=== PATIENT | male | born 1990 | race Caucasian/White ===

== ENCOUNTER 2019-10-25 09:30 | Outpatient (CLI) | payer BC, OTHER ==
--- NOTE | 2019-10-25 10:18 | RAD ---
Exam: 2 views abdomen HISTORY: Preoperative exam. Renal calculi. FINDINGS: No osseous abnormalities Nonspecific bowel gas pattern No suspicious densities projecting over the left or right renal silhouette or along the course of eit her ureter IMPRESSION: No radiographic evidence of nephrolithiasis or ureterolithiasis.
[2019-10-25 10:22] LABS: Anion Gap 11 mmol/L (10-20); BUN (Urea Nitrogen) 10 mg/dL (8.9-20.6); Calc. Creatinine Clearance 0 mL/min (70-130); Calcium 9.1 mg/dL (7.8-10.44); Carbon Dioxide 26 mmol/L (22-29); Chloride 102 mmol/L (98-107); Estimated GFR-MDRD Greater than 90; Glucose 92 mg/dL (70-105); Potassium 4.3 mmol/L (3.5-5.1); Sodium 135 mmol/L (136-145)
[2019-10-25 10:35] LABS: INR-International Normal Ratio 0.9; PTT 26.2 SEC (22.9-36.1); Prothrombin Time 12.2 SEC (12.0-14.7)
[2019-10-25 10:41] LABS: Hemoglobin 16.5 g/dL (14.0-18.0); Mean Corpuscular HGB CONC 32.3 g/dL (32.0-36.0); Mean Corpuscular Hemoglobin 31.2 pg (27.0-31.0); Mean Corpuscular Volume 96.7 fL (78.0-98.0); Mean Platelet Volume 7.9 fL (7.4-10.4); Platelet Count 241 thou/uL (130-400); RBC Distribution Width 12.1 % (11.5-14.5); Red Blood Cell (RBC) Count 5.27 mill/uL (4.70-6.10); White Blood Cell (WBC) Count 5.2 thou/uL (4.8-10.8)
== END 2019-10-25 09:31 | disposition home or self-care (01) ==
LOC: LABBT 09:30
PROVIDERS: ATTEND Urology
DX: Z01.818 Encounter for other preprocedural examination (principal); Z11.59 Encounter for screening for other viral diseases
CPT/HCPCS: 74018; 80048; 85027; 85610; 85730; 87635; U0003

== ENCOUNTER 2019-10-31 05:49 | Day surgery (SDC) | payer BC ==
[2019-10-25 09:53] VITALS: BMI 23.7
[2019-10-31] MEDS ORDERED: Levofloxacin 500 mg/D5W 100 ml Premix Bag ONE (06:40)
[2019-10-31] MEDS ORDERED: Iothalamate Meglumine 60% 30 ML VIAL FS ONE ×3 (07:05→08:00)
[2019-10-31] MEDS ORDERED: Fentanyl 100 MCG/2 ML VIAL ONE (07:08)
[2019-10-31] MEDS ORDERED: Midazolam HCl 2 mg/2 ml Vial ONE (07:20)
[2019-10-31] MEDS ORDERED: Glycopyrrolate 0.2 MG/ML 5 ML SYRINGE ONE (08:18)
[2019-10-31] MEDS ORDERED: Rocuronium Bromide 10 MG/ML (10ML VIAL) ONE (08:18)
[2019-10-31] MEDS ORDERED: PROPOFOL 200 MG/20 ML VIAL ONE (08:18)
[2019-10-31] MEDS ORDERED: Lidocaine 1% PF 5 ML VIAL ONE (08:18)
[2019-10-31] MEDS ORDERED: Ketorolac Tromethamine 30 MG/ML VIAL ONE (08:18)
[2019-10-31] MEDS ORDERED: Dexamethasone 20 MG/5 ML VIAL ONE (08:18)
[2019-10-31] MEDS ORDERED: Ondansetron PF 4 MG/2 ML Vial ONE (08:18)
--- NOTE | 2019-10-31 08:50 | RAD ---
KUB: COMPARISON: 10/25/2019. HISTORY: Left kidney stone. FINDINGS: A single view of the abdomen shows a nonspecific, nonobstructed bowel gas pattern. No obvious calcif ication is seen projecting over either renal shadow or along the course of the ureters. IMPRESSION: No urinary collecting system calculi identified. POS: EAA
--- NOTE | 2019-10-31 09:39 | RAD ---
XR IVP RETROGRADE: HISTORY: Left stent placement with stone. COMPARISON: Radiograph of same date. FINDINGS: Retrograde contrast through the left ureter demonstrates mild dilatation of the left renal collecting system. Satisfactory location of the double-J ureteral stent. IMPRESSION: 1. Satisfactory location of double-J ureteral stent. 2. Possible small filling defect of the ureteropelvic junction. POS: HOME
[2019-10-31] MEDS ORDERED: Oxybutynin 5 MG TAB ONE (09:45)
[2019-10-31] MEDS ORDERED: Phenazopyridine HCl 97.5 MG TABLET ONE (09:45)
--- NOTE | 2019-10-31 10:24 | OP ---
DATE OF PROCEDURE: 10/31/2019 PREOPERATIVE DIAGNOSIS: A 29-year-old male with left flank pain, left 5 mm UPJ stone with delayed nephrogram. POSTOPERATIVE DIAGNOSIS: A 29-year-old male with left flank pain, left 5 mm UPJ stone with delayed nephrogram. PROCEDURES PERFORMED: 1. Cystoscopy. 2. Left retrograde pyelogram. 3. A 6 x 28 double-J ureteral stent placement with distal tail in situ. 4. Balloon dilatation of the distal left intramural ureter. 5. Flexible ureteroscopy. 6. Pyeloscopy. 7. Laser lithotripsy. 8. Basket extraction of stone debris. ANESTHESIA: General. COMPLICATIONS: None apparent. DISPOSITION: To recovery room in stable condition. SPECIMEN: Stone fragment for chemical analysis. INTRAOPERATIVE FINDINGS: 1. Suggestion of possible early bulbar stricture, not warrant treatment. Scope easily maneuvered. 2. Left UPJ stone impacted, with mucosal adherence. INDICATION FOR PROCEDURE AND HISTORY: Mr. Feng is a 29-year-old male , who presented to the emergency room due to left flank pain. He has been provided pain medication and continues to have discomfort. He was observed for medical expulsion therapy, however, failed to pass with nonprogression. Of note, his stone is not visible on KUB. Due to persistent discomfort, he presents today for ureteroscopy, laser lithotripsy. Risks, complications, and indications for the procedure were discussed with him in detail. Risks and complications including , but not limited to, bleeding, pain, infection, injury to adjacent organs, urosepsis, ureteral, renal, kidney injury, stricture formation, possible secondary procedure were discussed with him in detail. Due to COVID-19 pandemic, patient's case has been reviewed and approved by administration to proceed, to prevent recurrent ER presentation for persistent stone. DESCRIPTION OF PROCEDURE: After an informed consent was signed, the patient was taken to the operating room, placed in a dorsal lithotomy position with the genital area prepped and draped in the usual surgical sterile fashion. A 21-Cambodian cystoscope was utilized for cystoscopy. Upon entering the level of the proximal penile-bulbar urethra, there was suggestion of early formation of stricture, however, this is nonobstructing, does not warrant treatment, and again, this only suggest an early component. Bilobar coapting lateral lobes of the prostate noted. Bladder was entered, which demonstrated no evidence of stone nidus of concern. The UOs were normal orthotopic position. At this time, a 5-Cambodian open-ended catheter was utilized for retrograde pyelogram, which demonstrated a filling defect in the UPJ consistent with the UPJ stone seen on CT. A preoperative KUB failed to demonstrate a stone nidus. It was difficult to perform a retrograde pyelogram opacifying the collecting system due to high-grade obstruction. We can see a tiny streak of contrast making its way into the collecting system with hydronephrosis. We used a 0.35 Sensor wire; however, I was unable to pass the wire proximal to the stone. We utilized multiple wires including straight, angled Glidewire. We also utilized 1:1 diluted lidocaine viscous lubricating the UPJ region. Subsequently , I was able to finally pass a 0.35 Glidewire into the left upper pole. An open- ended catheter was gently pushed into the upper pole, pushing the stone into the upper pole. At this time, we performed a repeat retrograde pyelogram, which demonstrated no evidence of extravasation of contrast at the UPJ nor the collecting system. A new wire was then switched to a 0.35 Sensor wire. Open-ended catheter was subsequently removed. Using [employer] 12-Cambodian 4-cm balloon dilator, we gently dilated the intramural ureter and held pressure at 20 atmospheres for about 1 to 2 minutes. Subsequently, a 10-Cambodian dual-lumen access sheath was able to be passed to the proximal ureter. Repeat retrograde pyelogram again was performed with no extravasation of contrast. At this time, a safety wire of 0.35 Super Stiff was placed into the left upper pole. An 11/13-Cambodian x 28 cm navigator was able to be passed just into the mid ureter as I did not forcibly engage the navigator proximal to this. A flexible ureteroscope was then advanced over the Super Stiff wire to the left upper pole. The stone was visualized into the upper pole, using 273-micron ball-tip laser fiber at 1.0 joules, we fragmented the stone into multiple stone nidus. The stone appeared to be dense, although in the upper pole, it appeared to be in anterior calyx, therefore laser lithotripsy and basket was somewhat cumbersome. There was a larger stone nidus. We moved this into the mid pole for more effective laser lithotripsy of the larger stone burden. We did obtain a fragment for chemical analysis. Surveying of the collecting system demonstrated what remained were tiny dust-like stone debris, which he should pass uneventfully. We again surveyed the ureter, there was no evidence of ureteral stone nidus. Assessing the UPJ, there was bullous edema and irritation of the mucosa consistent with an impacted adherent UPJ stone. No evidence of ureteral injury noted. The navigator was removed, but the ureteroscope with the wire in place. A 6 x 28 double-J ureteral stent was passed over the safety wire without difficulty. Wire was then subsequently removed with adequate curl in the upper pole and adequate redundancy in the bladder. Distal tail was left in situ. Bladder was completely emptied and he tolerated the procedure well and transported to the recovery room in stable condition. He was discharged with ciprofloxacin to be completed until followup for cysto, stent pull, Colace p.o. b.i.d. ,prn oxybutynin 10 mg 1 p.o. daily Azo p.r.n., Flomax to continue one p.o. daily, tramadol 50 mg 1 to 2 p.o. p.r.n. for discomfort. He will follow up with me on next at 0815 hours for cysto, stent pull under local. Job ID: [id number] [facility]
[2019-10-31] MEDS ORDERED: HYDROcodone/Acetaminophen 5/325 mg Tablet ONE (10:47)
== END 2019-10-31 11:30 | disposition home or self-care (01) ==
LOC: SDC 05:49
PROVIDERS: ATTEND Urology
PROC: BT1FYZZ Fluoroscopy of Left Kidney, Ureter and Bladder using Other Contrast (ICD-10-PCS; principal; 2019-10-31)
PROC: 0TC78ZZ Extirpation of Matter from Left Ureter, Via Natural or Artificial Opening Endoscopic (ICD-10-PCS; principal; 2019-10-31)
PROC: 0T778DZ Dilation of Left Ureter with Intraluminal Device, Via Natural or Artificial Opening Endoscopic (ICD-10-PCS; principal; 2019-10-31)
DX: N20.1 Calculus of ureter (principal); Z79.899 Other long term (current) drug therapy; Z87.891 Personal history of nicotine dependence
CPT/HCPCS: 36416; 74018; 74420; 82365; 88300; C1758; C1769; J1100; J1885; J1956; J2001; J2250; J2405; J2704; J3010